=== PATIENT | female | born 1965 | race Caucasian/White ===

== ENCOUNTER → 2018-07-05 | Outpatient (CLI) | payer OTHER ==
[~2018-07-05] MED LIST: FLUT16SP22 NS; ONDA8TAB9 PO; PNT40TEC PO; RABE20TA PO; SCR1T PO; [UNRECOGNIZED DRUG - REMARK] PO
--- NOTE | 2018-07-05 10:38 | Diagnostic Imaging Report ---
INDICATION: Routine screening. Comparison is made with prior mammogram from 04/06/2014. 2-D and 3-D bilateral screening mammography was performed with a Computer Aided Detection (CAD) system. FINDINGS: Both breasts are heterogeneously dense, limiting the sensitivity of mammography. Circumscribed nodular densities are identified in the upper outer right breast posterior depth at the axillary tail, suggestive of intraparenchymal lymph nodes. No spiculated mass or malignant appearing microcalcifications are seen. IMPRESSION: No mammographic features suspicious for malignancy are identified. ACR BI-RADS Category 2: Benign findings. Result letter will be mailed to the patient. Note: At least 10% of breast cancer is not imaged by mammography. Dictated by: Dictated on workstation # [id number]
== END ==
LOC: RAD 08:33
PROVIDERS: ATTEND Nurse Practitioner Family
DX: Z12.31 Encounter for screening mammogram for malignant neoplasm of breast (principal)
CPT/HCPCS: 77067

== ENCOUNTER → 2019-06-15 | Outpatient (CLI) | payer SELFPAY ==
[~2019-06-15] VITALS: Ht 170.2 cm; Wt 59.9 kg
[~2019-06-15] MED LIST changes: +CATHETER FLUSH 10 ML SYR IV PRN
[2019-06-15 13:19] VITALS: BP 119/79
[2019-06-15 13:25] VITALS: BP 180/70
[2019-06-15 13:30] VITALS: BP 105/71
--- NOTE | 2019-06-15 19:38 | STRESS TEST ---
DATE OF SERVICE: 06/15/2019 EXERCISE MYOVIEW STRESS TEST REFERRING PHYSICIAN: [facility]. Baseline heart rate is 50, baseline blood pressure 119/79. Baseline EKG is sinus rhythm with no ischemic changes. In summary, the patient was injected with 10.33 mCi of technetium-99 Myoview and the resting images were obtained. Then, the patient started exercising with a baseline heart rate, blood pressure and EKG mentioned above. The patient was able to exercise for 6 minutes 15 seconds on standard Alexsander protocol. With peak exercise level, EKG was showing mild artifact with minimal nondiagnostic changes. No significant ischemia was noted on EKG. Peak blood pressure was 180/70. During recovery, heart rate and blood pressure returned to baseline. EKG returned to baseline. The resting and stress images were reviewed and compared in the short axis, horizontal long axis, and vertical long axis views. Review of the images showed breast attenuation with good radiotracer uptake with no significant ischemia or infarction. SSS is 0. TID value 1.13. On the gated images, the left ventricle appeared to be in normal size with normal contractility. Calculated ejection fraction 68%. CONCLUSION: 1. Fair exercise tolerance, a total of 6 minutes 15 seconds on standard Alexsander protocol, total of 7.5 METS, achieving 89% of maximum expected heart rate. 2. Appropriate heart rate and blood pressure response to exercise, returned to baseline during recovery. 3. Minimal nondiagnostic EKG changes with exercise, returned to baseline during recovery. 4. Mild extracardiac attenuation with no significant ischemia or infarction on SPECT images. 5. Normal left ventricular size with normal contractility. Calculated ejection fraction 68%. Job ID: [id number] DocumentID: [id number] Dictated Date: 06/15/2019 16:11:32 Shear Operator Date: 06/15/2019 19:38:05 Dictated By: CARLY SCHAFFER MD
== END ==
LOC: CARD 10:11
PROVIDERS: ATTEND Internal Medicine Cardiovascular Disease
DX: E78.2 Mixed hyperlipidemia (principal); R07.9 Chest pain, unspecified; R06.09 Other forms of dyspnea; Z72.0 Tobacco use
CPT/HCPCS: 78452; 93017; 93306